=== PATIENT | male | born 1970 | race Caucasian/White ===

== ENCOUNTER 2017-10-13 14:41 | Emergency (ER) | payer MEDICAID, OTHER ==
[2017-10-13] MEDS: ATENOLOL 50 MG TAB PO (16:08)
[2017-10-13] MEDS: metFORMIN 500 MG TAB PO (16:13)
== END 2017-10-13 16:50 | disposition home or self-care (01) ==
LOC: E/R 14:41
DX: I10 Essential (primary) hypertension (principal); E11.9 Type 2 diabetes mellitus without complications; Z79.84 Long term (current) use of oral hypoglycemic drugs
CPT/HCPCS: 82962; 93005; 99284-25